=== PATIENT | female | born 1935 | race Caucasian/White ===

== ENCOUNTER 2022-01-30 16:35 | Inpatient (IN) | payer OTHER ==
[~2022-01-30] VITALS: Ht 142.2 cm; Wt 52.6 kg
[2022-01-30 16:45] VITALS: BP_SYST 122
[2022-01-30 17:08] LABS: BASOPHILS % (AUTO) 0.6 % (0.0-2.0); EOSINOPHILS # (AUTO) 0.1 K/uL (0.0-0.4); EOSINOPHILS % (AUTO) 1.1 % (0.0-4.0); HEMATOCRIT 30.9 % (36-48); HEMOGLOBIN 10.6 g/dL (12.0-16.0); LYMPHOCYTES # (AUTO) 1.2 K/uL (1.0-5.5); LYMPHOCYTES % (AUTO) 19.5 % (20.5-51.5); MEAN CORPUSCULAR HEMOGLOBIN 33 pg (27-31); MEAN CORPUSCULAR HGB CONC 34 % (32-36); MEAN CORPUSCULAR VOLUME 97 fL (79.0-98.0); MONOCYTES # (AUTO) 0.7 K/uL (0.0-1.0); MONOCYTES % (AUTO) 11.8 % (1.7-9.3); NEUTROPHILS # (AUTO) 4.2 K/uL (1.8-7.7); RED BLOOD CELL COUNT(AUTO) 3.19 MIL/uL (4.2-6.2); RED CELL DISTRIBUTION WIDTH 15.3 % (9.0-15.0); WHITE BLOOD COUNT (AUTO) 6.3 K/uL (4.8-10.8)
[2022-01-30 17:26] LABS: ANION GAP 6 (5-15); CALCIUM 9.5 mg/dL (8.4-11.0); CHLORIDE 97 mmol/L (98-107); CREATININE 1.17 mg/dL (0.55-1.30); GLUCOSE 147 mg/dL (70-99); SODIUM SERUM 136 mmol/L (136-145); UREA NITROGEN, BLOOD 21 mg/dL (8-21)
[2022-01-30 17:35] LABS: ALANINE AMINOTRANSFERASE 19 U/L (12-78); ALBUMIN 3.4 g/dL (3.4-4.8); ASPARTATE AMINOTRANSFERASE 19 U/L (10-37); TOTAL BILIRUBIN 0.1 mg/dL (0.0-1.0)
[2022-01-30 17:40] LABS: PLATELET COUNT (AUTO) 723 K/uL (130-430)
[2022-01-30] MEDS ORDERED: PANTOPRAZOLE SODIUM 40 MG TAB PO ONE (22:15)
[2022-01-30] MEDS ORDERED: ASPIRIN 81 MG TABLET(ECOTRIN) PO ONE (22:15)
[2022-01-30 23:04] VITALS: BP_SYST 123
[2022-01-30] MEDS ORDERED: DIPHENHYDRAMINE INJ 50 MG/ML VIAL IVP ONE (23:15)
[2022-01-30] MEDS ORDERED: PANT20TA2 PO (23:51)
[2022-01-30] MEDS ORDERED: LEVO25TA7 PO (23:51)
[2022-01-30] MEDS ORDERED: HYD500 PO (23:51)
[2022-01-30] MEDS ORDERED: ATEN50TA PO (23:51)
[2022-01-30] MEDS ORDERED: NOR10 PO (23:51)
[2022-01-30] MEDS ORDERED: ROSU10TA2 PO (23:51)
[2022-01-30] MEDS ORDERED: CLOP75TA32 PO (23:51)
[2022-01-30] MEDS ORDERED: LISI-209 PO (23:51)
[2022-01-30] MEDS ORDERED: ESCI10TA PO (23:51)
[2022-01-31] MEDS: LR 1,000 ML IV SCH ×2 (01:52→12:40)
[2022-01-31 06:53] LABS: BASOPHILS % (AUTO) 0.6 % (0.0-2.0); EOSINOPHILS # (AUTO) 0.1 K/uL (0.0-0.4); EOSINOPHILS % (AUTO) 1.7 % (0.0-4.0); HEMATOCRIT 31.2 % (36-48); HEMOGLOBIN 10.8 g/dL (12.0-16.0); LYMPHOCYTES % (AUTO) 17.7 % (20.5-51.5); MEAN CORPUSCULAR HEMOGLOBIN 33 pg (27-31); MEAN CORPUSCULAR HGB CONC 35 % (32-36); MEAN CORPUSCULAR VOLUME 96 fL (79.0-98.0); MONOCYTES # (AUTO) 0.5 K/uL (0.0-1.0); MONOCYTES % (AUTO) 7.9 % (1.7-9.3); NEUTROPHILS # (AUTO) 4.2 K/uL (1.8-7.7); NEUTROPHILS % (AUTO) 72.1 % (40.0-70.0); PLATELET COUNT (AUTO) 696 K/uL (130-430); RED BLOOD CELL COUNT(AUTO) 3.23 MIL/uL (4.2-6.2); RED CELL DISTRIBUTION WIDTH 15.4 % (9.0-15.0); WHITE BLOOD COUNT (AUTO) 5.8 K/uL (4.8-10.8)
[2022-01-31 08:33] LABS: ALANINE AMINOTRANSFERASE 20 U/L (12-78); ALBUMIN 3.2 g/dL (3.4-4.8); ANION GAP 8 (5-15); ASPARTATE AMINOTRANSFERASE 17 U/L (10-37); CALCIUM 9.4 mg/dL (8.4-11.0); CHLORIDE 101 mmol/L (98-107); CREATININE 1.08 mg/dL (0.55-1.30); FREE T4 (FREE THYROXINE) 1.5 ng/dl (0.8-1.5); GLUCOSE 136 mg/dL (70-99); POTASSIUM 3.5 mmol/L (3.5-5.1); SODIUM SERUM 140 mmol/L (136-145); THYROID STIMULATING HORMONE 5.86 uIu/mL (0.36-3.74); UREA NITROGEN, BLOOD 18 mg/dL (8-21)
[2022-01-31] MEDS ORDERED: ASPIRIN 81 MG TABLET(ECOTRIN) PO SCH (09:00)
[2022-01-31] MEDS ORDERED: PANTOPRAZOLE SODIUM 40 MG TAB PO SCH ×2 (09:00→13:00)
[2022-01-31 09:16] LABS: TOTAL BILIRUBIN 0.2 mg/dL (0.0-1.0)
[2022-01-31 10:03] LABS: CHOLESTEROL 114 mg/dL (<200); HDL CHOLESTEROL 51 mg/dL (>55); LDL CHOLESTEROL 44 mg/dL (<100); TRIGLYCERIDES 123 mg/dL (30-150)
[2022-01-31] MEDS ORDERED: DIPHENHYDRAMINE INJ 50 MG/ML VIAL IVP ONE ×2 (13:00→15:00)
[2022-01-31] MEDS ORDERED: ESCITALOPRAM OXALATE 10 MG TABLET PO SCH (13:00)
[2022-01-31] MEDS ORDERED: amLODIPine BESYLATE 10 MG TABLET PO ONE (13:15)
[2022-01-31] MEDS ORDERED: ATENOLOL 50 MG TABLET (TENORMIN) PO ONE (13:15)
[2022-01-31] MEDS ORDERED: LEVOTHYROXINE SODIUM 0.025 MG TABLET PO ONE (13:30)
[2022-01-31] MEDS ORDERED: CLOPIDOGREL BISULFATE 75 MG TABLET PO ONE (14:15)
[2022-01-31] MEDS ORDERED: CITALOPRAM HYDROBROMIDE 20 MG TABLET PO ONE (14:30)
[2022-01-31] MEDS ORDERED: LISINOPRIL 10 MG TABLET (PRINIVIL) PO ONE (14:30)
[2022-01-31] MEDS ORDERED: HYDROXYUREA 500 MG CAPSULE (HYDREA) PO ONE ×2 (15:00→15:30)
[2022-01-31 16:03] LABS: TOTAL IRON BIND. CAPACITY 251 ug/dL (250-450)
[2022-01-31 17:31] LABS: BILIRUBIN,URINE NEGATIVE (NEGATIVE); BLOOD, URINE NEGATIVE (NEGATIVE); CLARITY/URINE CLEAR (CLEAR); GLUCOSE,URINE NEGATIVE (NEGATIVE); KETONES,URINE NEGATIVE (NEGATIVE); NITRITE, URINE NEGATIVE (NEGATIVE); PROTEIN URINE NEGATIVE (NEGATIVE); UROBILINOGEN,URINE 0.2 (0.2-1.0)
[2022-01-31 17:39] LABS: COLOR,URINE STRAW (YELLOW); LEUKOCYTE ESTERASE ,URINE TRACE (NEGATIVE)
[2022-01-31 17:41] LABS: BACTERIA,URINE FEW /HPF (None Seen); MUCUS,URINE None Seen /LPF (None Seen); RBC,URINE NONE SEEN /HPF (0-3)
[2022-01-31] MEDS ORDERED: cefTRIAXone 1 GM in D5W 50 ML IV SCH (18:00)
[2022-01-31] MEDS ORDERED: CIPR250T4 PO (18:04)
[2022-01-31] MEDS ORDERED: LACT1CAP72 PO (18:05)
[2022-01-31] MEDS ORDERED: CIPROFLOXACIN HCL 500 MG TABLET PO ONE (18:15)
[2022-01-31 20:15] VITALS: BP_SYST 139
[2022-01-31 20:24] VITALS: BP_SYST 139
[2022-01-31] MEDS ORDERED: LACTOBACILLUS RHAMNOSUS GG 1 CAP CAPSULE PO SCH (21:00)
[2022-02-01] MEDS ORDERED: LEVOTHYROXINE SODIUM 0.025 MG TABLET PO SCH (07:00)
[2022-02-01 08:06] LABS: FOLATE (FOLIC ACID) >20.0 ng/mL (>3.0)
[2022-02-01] MEDS ORDERED: CLOPIDOGREL BISULFATE 75 MG TABLET PO SCH (09:00)
[2022-02-01] MEDS ORDERED: HYDROXYUREA 500 MG CAPSULE (HYDREA) PO SCH (09:00)
[2022-02-01] MEDS ORDERED: amLODIPine BESYLATE 10 MG TABLET PO SCH (09:00)
[2022-02-01] MEDS ORDERED: LISINOPRIL 10 MG TABLET (PRINIVIL) PO SCH (09:00)
[2022-02-01] MEDS ORDERED: CITALOPRAM HYDROBROMIDE 20 MG TABLET PO SCH (09:00)
[2022-02-01] MEDS ORDERED: ATORVASTATIN 20 MG TABLET PO SCH (09:00)
[2022-02-01] MEDS ORDERED: ATENOLOL 50 MG TABLET (TENORMIN) PO SCH (09:00)
[2022-02-01] MEDS ORDERED: CIPROFLOXACIN HCL 500 MG TABLET PO SCH (10:00)
[2022-02-02] MEDS ORDERED: HYDROXYUREA 500 MG CAPSULE (HYDREA) PO SCH ×2 (09:00)
[2022-02-06] MEDS ORDERED: HYDROXYUREA 500 MG CAPSULE (HYDREA) PO SCH (09:00)
== END 2022-01-31 21:37 | disposition home or self-care (01) | DRG 57 ==
LOC: SED 16:35 → STU 19:51
PROVIDERS: ADMIT Internal Medicine; ATTEND Internal Medicine
DX: G31.84 Mild cognitive impairment of uncertain or unknown etiology (principal); G45.9 Transient cerebral ischemic attack, unspecified; D75.838 Other thrombocytosis; I10 Essential (primary) hypertension; E78.5 Hyperlipidemia, unspecified; E03.9 Hypothyroidism, unspecified; G93.89 Other specified disorders of brain; D64.9 Anemia, unspecified; Z20.822 Contact with and (suspected) exposure to COVID-19; Z86.73 Personal history of transient ischemic attack (TIA), and cerebral infarction without residual deficits; F80.2 Mixed receptive-expressive language disorder
CPT/HCPCS: 36415; 70450-TC; 70551; 76376; 76700-TC; 80053; 80061; 81000; 82607; 82746; 83540; 83550; 84439; 84443; 84484; 85025; 87086; 93005; 93306; 93880; 99291; 99292; G0378; J0696; J1200; J7060